=== PATIENT | female | born 2000 | race African-American/Black ===

== ENCOUNTER 2022-07-28 10:06 | Emergency (ER) | payer MEDICAID ==
[~2022-07-28] VITALS: Ht 162.6 cm; Wt 58.0 kg
[2022-07-28 10:10] VITALS: BP 133/100
== END 2022-07-28 11:49 | disposition home or self-care (01) ==
LOC: ER 10:06
DX: T76.21XA Adult sexual abuse, suspected, initial encounter (principal); J45.909 Unspecified asthma, uncomplicated
CPT/HCPCS: 99281